=== PATIENT | female | born 1960 | race Caucasian/White ===

== ENCOUNTER → 2018-10-04 | Day surgery (SDC) | payer BC ==
[~2018-10-04] VITALS: Ht 157.5 cm; Wt 50.8 kg
[~2018-10-04] MED LIST: DEXL30CA5 PO; LIDOCAINE MPF 1% 5 ML VIAL ONE; LIDOCAINE/SOD BICARB 8.4% SYR ID ONE; NORMOSOL R SOLN(*) 1000 ML BAG 1,000 ML IV PRN; ONDA4TAB PO; PROPOFOL EMUL(*) 10MG/ML 20 ML 40 ML ONE
[2018-10-04 06:37] VITALS: BP 140/79
[2018-10-04 08:24] VITALS: BP 118/64
[2018-10-04 08:45] VITALS: BP 125/61
[2018-10-04 09:00] VITALS: BP 130/65
[2018-10-04 09:06] VITALS: BP 115/71
[2018-10-04 09:09] VITALS: BP 111/66
== END ==
LOC: OR 00:21
PROVIDERS: ATTEND Family Medicine
DX: Z12.11 Encounter for screening for malignant neoplasm of colon (principal); K63.5 Polyp of colon
CPT/HCPCS: 00811; 45380; 88305; J2001; J2704